=== PATIENT | female | born 1955 | race Two or more races ===

== ENCOUNTER 2016-08-14 00:19 | Emergency (ER) | payer SELFPAY ==
[~2016-08-14] VITALS: Ht 160 cm; Wt 68.0 kg
[2016-08-14 01:14] LABS: Basophils # (auto) 0 uL; Basophils % (auto) 0.4 % (0.0-2.0); Eosinophils # (auto) 0.2 uL; Eosinophils % (auto) 2.8 % (0.0-7.0); Hematocrit 34.7 % (36.0-46.0); Hemoglobin 11.6 g/dL (12.2-16.2); Lymphocytes # (auto) 0.9 uL; Lymphocytes % (auto) 14.6 % (10.0-50.0); Mean Corpuscular Hemoglobin 29.5 pg (28.0-32.0); Mean Corpuscular Hgb Conc. 33.5 g/dL (32.0-36.0); Mean Corpuscular Volume 88.1 fL (80.0-100.0); Mean Platelet Volume 8.4 fL (7.4-10.4); Monocytes # (auto) 0.5 uL; Monocytes % (auto) 8.1 % (0.0-12.0); Neutrophils # (auto) 4.3 uL; Neutrophils % (auto) 74.1 % (37.0-80.0); Platelet Count (auto) 344 10^3/uL (140-450); White Blood Cell 5.8 10^3/uL (4.4-10.8)
[2016-08-14] MEDS ORDERED: PANT40TA2 PO (01:32)
[2016-08-14] MEDS ORDERED: DOCU100T15 PO (01:32)
[2016-08-14] MEDS ORDERED: DEX4I PO (01:32)
[2016-08-14] MEDS ORDERED: LEVE100012 PO (01:32)
[2016-08-14 01:40] LABS: Albumin 3.3 g/dL (3.4-5.0); BUN/Creatinine Ratio 27.5; Calcium 9.3 mg/dL (8.5-10.1); Potassium 3.3 mmol/L (3.5-5.1)
[2016-08-14 01:43] LABS: Bilirubin, Total 0.4 mg/dL (0.2-1.0); Total Protein 7.5 g/dL (6.4-8.2)
[2016-08-14] MEDS ORDERED: SODIUM CHLORIDE 0.9% 1,000 ML IVB ONE (01:43)
[2016-08-14] MEDS ORDERED: ONDANSETRON HCL 4 MG/2 ML VIAL IV ONE (01:45)
[2016-08-14] MEDS ORDERED: KETOROLAC TROMETH 30 MG/ML 1ML VIAL IM ONE (01:45)
[2016-08-14] MEDS ORDERED: HYDROmorphone HCL 2 MG/ML VL IV ONE (01:45)
[2016-08-14] MEDS ORDERED: KETOROLAC TROMETH 30 MG/ML 1ML VIAL IV ONE (03:15)
[2016-08-14] MEDS ORDERED: POTASSIUM CHL 10% (20 MEQ/15ML) ORAL SOLN PO ONE (04:00)
[2016-08-14 05:31] VITALS: BP 112/69
== END 2016-08-14 06:39 | disposition home or self-care (01) ==
LOC: EDBD 00:19 → ER 00:19
DX: S40.012A Contusion of left shoulder, initial encounter (principal); S80.01XA Contusion of right knee, initial encounter; G89.3 Neoplasm related pain (acute) (chronic); K21.9 Gastro-esophageal reflux disease without esophagitis; W19.XXXA Unspecified fall, initial encounter; Y93.89 Activity, other specified; Y99.8 Other external cause status; Y92.89 Other specified places as the place of occurrence of the external cause; Z86.73 Personal history of transient ischemic attack (TIA), and cerebral infarction without residual deficits; Z79.899 Other long term (current) drug therapy
CPT/HCPCS: 36415; 71010; 73030; 73562; 80053; 85025; 96361; 96374; 96375; 99285; J1170; J1885; J2405; J7030